=== PATIENT | female | born 1970 | race Caucasian/White ===

== ENCOUNTER 2017-06-07 06:33 | Inpatient (IN) | payer OTHER ==
[2017-06-07 07:00] VITALS: BMI 21.2
--- NOTE | 2017-06-07 07:32 | PDOC ---
History of Present Illness <Tamie Reed - Last Filed: 06/07/17 11:36> - General History Source: Patient - History of Present Illness Timing/Duration: reports: constant Quality: reports: moderate <Chance Sahni - Last Filed: 06/07/17 12:16> - General Chief Complaint: Pain Stated Complaint: POSSIBLE UTI Time Seen by Provider: 06/07/17 07:11 Past History <Tamie Reed - Last Filed: 06/07/17 11:36> - Past Medical History COPD: No - Suicide/Smoking/Psychosocial Hx Smoking History: Never smoked Hx Alcohol Use: No Drug/Substance Use Hx: No <Chance Sahni - Last Filed: 06/07/17 12:16> - Past Medical History Allergies/Adverse Reactions: Allergies Allergy/AdvReac Type Severity Reaction Status Date / Time No Known Allergies Allergy Verified 06/07/17 07:02 Home Medications: Ambulatory Orders Ibuprofen 800 mg PO QID 06/07/17 Review of Systems - Review of Systems Constitutional: No: Chills, Fever ABD/GI: No: Constipated, Diarrhea, Nausea, Vomiting : Yes: Dysuria, Frequency. No: Burning, Discharge, Flank Pain, Hematuria <Chance Sahni - Last Filed: 06/07/17 12:16> *Physical Exam - Vital Signs Last Vital Signs Temp Pulse Resp BP Pulse Ox 100 F H 109 H 20 122/75 99 06/07/17 10:58 06/07/17 10:58 06/07/17 10:58 06/07/17 10:58 06/07/17 10:58 <Tamie Reed - Last Filed: 06/07/17 11:36> - Vital Signs Last Vital Signs Temp Pulse Resp BP Pulse Ox 98.8 F 100 H 118/67 99 06/07/17 06:58 06/07/17 06:58 06/07/17 06:58 06/07/17 06:58 - Physical Exam General Appearance: Yes: Appropriately Dressed. No: Apparent Distress HEENT: positive: Normal Voice Neck: positive: Supple Respiratory/Chest: negative: Respiratory Distress Female Pelvic Exam: positive: normal external exam, normal adnexa. negative: CMT, vaginal bleeding Gastrointestinal/Abdominal: positive: Tender (moderate ttp to mid suprapubic). negative: Distended, Guarding, Rebound Musculoskeletal: negative: CVA Tenderness Integumentary: positive: Dry, Warm Neurologic: positive: Fully Oriented, Alert, Normal Mood/Affect <Chance Sahni - Last Filed: 06/07/17 12:16> ED Treatment Course - LABORATORY CBC & Chemistry Diagram: 06/07/17 08:10 06/07/17 08:10 - ADDITIONAL ORDERS Additional order review: Laboratory Results 06/07/17 06/07/17 06/07/17 08:10 08:10 08:10 Sodium 137 Potassium 4.1 Chloride 104 Carbon Dioxide 26 Anion Gap 7 L BUN 7 D Creatinine 0.5 L Creat Clearance w eGFR > 60 Random Glucose 98 Calcium 9.0 Total Bilirubin 0.3 D AST 18 D ALT 32 D Alkaline Phosphatase 179 H D Total Protein 8.0 Albumin 3.1 L Lipase Cancelled 112 Urine Color Yellow Urine Appearance Slcloudy Urine pH 7.0 Ur Specific [place] 1.015 Urine Protein 2+ H Urine Glucose (UA) Negative Urine Ketones Negative Urine Blood 1+ H Urine Nitrite Negative Urine Bilirubin Negative Urine Urobilinogen Negative Urine WBC (Auto) 3 Urine RBC (Auto) 3 Ur Epithelial Cells Few Urine Mucus Few Urine HCG, Qual Negative 06/07/17 08:10 RBC 3.43 L MCV 84.5 MCHC 32.9 RDW 14.0 MPV 7.6 Neutrophils % 83.1 H Lymphocytes % 11.0 Monocytes % 5.3 Eosinophils % 0.4 Basophils % 0.2 - Medications Given in the ED: ED Medications Discontinued Medications Generic Name Dose Route Start Last Admin Trade Name Valentina PRN Reason Stop Dose Admin Phenazopyridine HCl 200 mg 06/07/17 08:57 06/07/17 09:15 Pyridium - PO 06/07/17 08:58 200 mg ONCE ONE Administration <Tamie Reed - Last Filed: 06/07/17 11:36> - LABORATORY CBC & Chemistry Diagram: 06/07/17 08:10 06/07/17 08:10 <Chance Sahni - Last Filed: 06/07/17 12:16> Medical Decision Making - Medical Decision Making 06/07/17 11:36 Dr. Torres was paged and notified via phone service. <Tamie Reed - Last Filed: 06/07/17 11:36> - Medical Decision Making 06/07/17 07:29 47-year-old female status post surgery for ruptured appy 04/07, here with dysuria with urinary frequency x 3-4 days. States even when she is not urinating, she feels pain in her vaginal area. No flank pain, nausea, vomiting, fever, chills, hematuria or vag discharge. No acute change in bowel movements See exam R/o uti, less likely complication from appy 2 months ago -labs -ua/cx 06/07/17 09:18 Wbx 11. ua w/ +bld,protein and 3 wbc, no nit. Pt now complaining of lower abdominal pain diffusely. Though low clinical suspicion for intra-abdominal process, will scan at this time 06/07/17 11:23 CT with large abscess in the midline lower abdomen measuring 4 x 4 x 6cm, inseparable from the anterior wall of the urinary bladder with some reactive wall thickening of the bladder. White count 11. Patient now has low-grade fever of 100. Tylenol and fluids in progress w/ preop labs sent off. Will contact surgery and discuss ? abx while in ED. 06/07/17 11:[address] Marks, who performed patient's surgery back in March. Recommends keeping patient NPO, administer Zosyn and contacting IR for drainage. Patient to be admitted to PMD. 06/07/17 11:31 06/07/17 11:[address] Tinsley of IR who request that I placed an order for procedure. States patient most likely will be drained in the a.m. 06/07/17 12:16 Case d/w Dr Torres and pt admitted <Chance Sahni - Last Filed: 06/07/17 12:16> *DC/Admit/Observation/Transfer <Tamie Reed - Last Filed: 06/07/17 11:36> - Discharge Dispostion Admit: Yes <Chance Sahni - Last Filed: 06/07/17 12:16> Diagnosis at time of Disposition: Abdominal abscess - Discharge Dispostion Condition at time of disposition: Fair - Referrals Referrals: Page Santos [Primary Care Provider] - - Patient Instructions - Post Discharge Activity
[2017-06-07 08:24] LABS: BASO % 0.2 % (0-2.0); EOS % 0.4 % (0-4.5); MCH 27.8 pg (25.7-33.7); MCHC 32.9 g/dl (32.0-36.0); MEAN CELL VOLUME 84.5 fl (80-96); MEAN PLT VOLUME 7.6 fl (7.5-11.1); NEUT % 83.1 % (42.8-82.8); PLATELET COUNT 356 K/MM3 (134-434); WHITE BLOOD COUNT 11.3 K/mm3 (4.0-10.0)
[2017-06-07 08:32] LABS: URINE APPEARANCE SLCLOUDY; URINE BILIRUBIN NEGATIVE (NEGATIVE); URINE BLOOD 1+ (NEGATIVE); URINE COLOR YELLOW; URINE GLUCOSE (UA) NEGATIVE (NEGATIVE); URINE KETONE NEGATIVE (NEGATIVE); URINE LEUK ESTERASE NEGATIVE (NEGATIVE); URINE NITRITE NEGATIVE (NEGATIVE); URINE UROBILINOGEN NEGATIVE mg/dL (0.2-1.0)
[2017-06-07 08:44] LABS: URINE MUCUS FEW; URINE PROTEIN 2+ (NEGATIVE); URINE RBC 3 /hpf (0-3); URINE WBC 3 /hpf (3-5)
[2017-06-07 08:48] LABS: ALBUMIN 3.1 g/dl (3.4-5.0); ANION GAP 7 (8-16); BILIRUBIN,TOTAL 0.3 mg/dL (0.2-1.0); CO2 26 mmol/L (21-32); CREATININE 0.5 mg/dL (0.55-1.02); GLUCOSE,RANDOM 98 mg/dL (74-106); SGOT/AST 18 U/L (15-37); SGPT/ALT 32 U/L (12-78)
[2017-06-07 08:49] LABS: ALK PHOS 179 U/L (45-117)
[2017-06-07] MEDS ORDERED: PHENAZOPYRIDINE HCL 100 MG TABLET (FP) PO ONE (08:57)
[2017-06-07] MEDS ORDERED: PHENAZOPYRIDINE HCL 100 MG TABLET (FP) ONE (09:15)
[2017-06-07] MEDS ORDERED: ACETAMINOPHEN 325 MG TABLET (FP) PO ONE (11:23)
[2017-06-07] MEDS ORDERED: SODIUM CHLORIDE 1,000 ML IV STA (11:23)
[2017-06-07] MEDS ORDERED: PIPERACILLIN/TAZOB 3.375 GM 50 ML IVPB ONE (11:28)
[2017-06-07] MEDS ORDERED: ACETAMINOPHEN 650 MG/20.3 ML ORAL SOLUTION (CUPS) ONE (11:40)
[2017-06-07] MEDS ORDERED: PIPERACILLIN/TAZOB 3.375 GM 3.375 GM/50 ML BAG IVPB ONE (11:41)
[2017-06-07 12:08] LABS: INR 1.3 (0.82-1.09); PROTHROMBIN TIME (PATIENT) 14.7 SEC (9.98-11.88)
[2017-06-07] MEDS ORDERED: morphine SULFATE 4 MG/ML VIAL IVPUSH PRN (17:15)
[2017-06-07 19:54] LABS: URINE LEUK ESTERASE Negative (NEGATIVE)
--- NOTE | 2017-06-07 21:41 | HP ---
Admitting History and Physical - Admission Chief Complaint: Dysuria History of Present Illness: Pt is a 47 y/o female w/ PMH significant for perforated appendix in 04/07 for wc she had undergone lap appendectomy. Pt now presented to the ER bc of generalized lower abdominal discomfort for at least 1 week. Pt also c/o dysuria and increased urination x 1 week. Pt denies any fever/chills and no nausea/vomiting. In the ER pt found to be febrile to 100 w/ WBC of 11.3. CT scan abd/pelvis showed abscess in midline abdomen inseparable from ant wall of urinary bladder. History Source: Patient - Past Surgical History Past Surgical History: Yes: Appendectomy - Smoking History Smoking history: Never smoked - Alcohol/Substance Use Hx Alcohol Use: No Home Medications - Allergies Allergies/Adverse Reactions: Allergies Allergy/AdvReac Type Severity Reaction Status Date / Time No Known Allergies Allergy Verified 06/07/17 07:02 - Home Medications Home Medications: Ambulatory Orders Ibuprofen 800 mg PO QID 06/07/17 Family Disease History - Family Disease History Family History: Unremarkable Review of Systems - Review of Systems Constitutional: reports: No Symptoms HENT: reports: No Symptoms Neck: reports: No Symptoms Cardiovascular: reports: No Symptoms Respiratory: reports: No Symptoms Gastrointestinal: reports: Abdominal Pain Genitourinary: reports: Dysuria, Frequency Physical Examination Vital Signs: Vital Signs Temperature 97.8 F 06/07/17 14:44 Pulse Rate 112 H 06/07/17 14:44 Respiratory Rate 18 06/07/17 16:25 Blood Pressure 103/60 06/07/17 14:44 O2 Sat by Pulse Oximetry (%) 97 06/07/17 16:25 Constitutional: Yes: No Distress Neck: Yes: WNL, Supple Cardiovascular: Yes: WNL, Regular Rate and Rhythm Respiratory: Yes: WNL, Regular, CTA Bilaterally Gastrointestinal: Yes: WNL, Normal Bowel Sounds, Soft Musculoskeletal: Yes: WNL Extremities: Yes: WNL Edema: No Neurological: Yes: WNL, Alert, Oriented ...Motor Strength: WNL Labs: CBC, BMP 06/07/17 08:10 06/07/17 08:10 Problem List - Problems (1) Abdominal abscess Assessment/Plan: Cont IV zosyn Pt to have drainage by IR in am ID/Surgical consults Follow cultures NPO Code(s): K65.1 - PERITONEAL ABSCESS
[2017-06-08] MEDS: ACETAMINOPHEN 325 MG TABLET (FP) PO PRN ×2 (00:42→18:27)
[2017-06-08] MEDS: DEXTROSE 5%-0.45% SALINE 1,000 ML IV SCH ×2 (00:43→15:20)
[2017-06-08] MEDS ORDERED: PIPERACILLIN/TAZOB 3.375 GM 3.375 GM in DEXTROSE 5%-WATER - 50 ML IVPB ONE (03:30)
[2017-06-08 08:44] LABS: BASO % 0.1 % (0-2.0); EOS % 0.2 % (0-4.5); MCH 27.2 pg (25.7-33.7); MCHC 32.7 g/dl (32.0-36.0); MEAN CELL VOLUME 83.4 fl (80-96); MEAN PLT VOLUME 7.9 fl (7.5-11.1); NEUT % 83.5 % (42.8-82.8); PLATELET COUNT 328 K/MM3 (134-434); RDW 13.9 % (11.6-15.6); WHITE BLOOD COUNT 11.6 K/mm3 (4.0-10.0)
[2017-06-08 09:16] LABS: ALBUMIN 2.6 g/dl (3.4-5.0); ANION GAP 9 (8-16); BILIRUBIN,TOTAL 0.6 mg/dL (0.2-1.0); CALCIUM 8.9 mg/dL (8.5-10.1); CO2 25 mmol/L (21-32); CREATININE 0.5 mg/dL (0.55-1.02); GLUCOSE,RANDOM 120 mg/dL (74-106); SGOT/AST 53 U/L (15-37); SGPT/ALT 71 U/L (12-78)
[2017-06-08 09:17] LABS: ALK PHOS 221 U/L (45-117); TOT PROT 6.8 g/dl (6.4-8.2)
--- NOTE | 2017-06-08 11:44 | PN ---
Progress Note (short form) - Note Progress Note: surgery pt seen and examined yesterday. In ct today for drainage. Well known to me from appendectomy almost 2 months ago. Been off abx for almost a month. Presents with new lower abd pain and increased urinary frequency. Ct shows abscess anterior to bladder. on exam mild suprapubic tenderness. Plan- temporally likely residual collection from previous perforation. agree with admission and IR drainage. Can resume diet once procedure over. Poss d/c WED on po abx once appears well.
[2017-06-08] MEDS: HEPARIN NA (PORCINE) 5,000 UNITS/ML 1ML VIAL SQ SCH ×2 (12:37→21:25)
--- NOTE | 2017-06-08 14:06 | CON.ID ---
Consult Consult Specialty:: infectious diseases Referred by:: Reason for Consultation:: abd abscess - History of Present Illness History of Present Illness: 47 y/o female w/ PMH significant for perforated appendix in 04/07 for wc she had undergone lap appendectomy. Pt now admitted bc of generalized lower abdominal discomfort for at least 1 week. Pt also c/o dysuria and increased urination x 1 week. Pt denies any fever/chills and no nausea/vomiting. In the ER pt found to be febrile to 100 w/ WBC of 11.3. CT scan abd/pelvis showed abscess in midline abdomen inseparable from ant wall of urinary bladder. patient was seen by surgeon and taken to the OR and patients abscess was drained and a drainage tube left in place patient states that she continues to have abd pain which has been going on for quite some time - History Source History Provided By: Patient Limitations to Obtaining History: Language Barrier - Past Surgical History Past Surgical History: Yes: Appendectomy - Alcohol/Substance Use Hx Alcohol Use: No - Smoking History Smoking history: Never smoked Home Medications - Allergies Allergies/Adverse Reactions: Allergies Allergy/AdvReac Type Severity Reaction Status Date / Time No Known Allergies Allergy Verified 06/07/17 07:02 - Home Medications Home Medications: Ambulatory Orders Ibuprofen 800 mg PO QID 06/07/17 Review of Systems - Review of Systems Constitutional: reports: No Symptoms Eyes: reports: No Symptoms HENT: reports: No Symptoms Neck: reports: No Symptoms Cardiovascular: reports: No Symptoms Respiratory: reports: No Symptoms Gastrointestinal: reports: Abdominal Pain, Other Musculoskeletal: reports: No Symptoms Integumentary: reports: No Symptoms Neurological: reports: No Symptoms Endocrine: reports: No Symptoms Hematology/Lymphatic: reports: No Symptoms Psychiatric: reports: No Symptoms Physical Exam Vital Signs: Vital Signs Temperature 100.0 F H 06/08/17 13:50 Pulse Rate 111 H 06/08/17 12:36 Respiratory Rate 20 06/08/17 12:36 Blood Pressure 106/66 06/08/17 13:50 O2 Sat by Pulse Oximetry (%) 100 06/08/17 11:29 Constitutional: Yes: Well Nourished, No Distress, Calm Eyes: Yes: Conjunctiva Clear Neck: Yes: Supple, Trachea Midline Cardiovascular: Yes: Regular Rate and Rhythm Respiratory: Yes: Regular, CTA Bilaterally Gastrointestinal: Yes: Normal Bowel Sounds, Soft, Other (drainage tube in place) Musculoskeletal: Yes: WNL Extremities: Yes: WNL Neurological: Yes: Alert, Oriented Psychiatric: Yes: Alert, Oriented Labs: CBC, BMP 06/08/17 07:30 06/08/17 07:30 Imaging - Results Cat Scan: Report Reviewed, Image Reviewed Assessment/Plan Problem List - Problems (1) Abdominal abscess Assessment/Plan: S/P placement of drainage tube Code(s): K65.1 - PERITONEAL ABSCESS plan lilly start patient on zosyn follow cx and wbc rest as per primary team
[2017-06-08] MEDS: PIPERACILLIN/TAZOB 3.375 GM 3.375 GM in DEXTROSE 5%-WATER - 100 ML IVPB SCH ×2 (15:21→18:27)
--- NOTE | 2017-06-08 21:57 | PN ---
Progress Note, Physician History of Present Illness: Pt tolerated procedure but spiked temp to 101 - Current Medication List Current Medications: Active Medications Acetaminophen (Tylenol -) 650 mg PO Q6H PRN PRN Reason: FEVER OR PAIN Last Admin: 06/08/17 18:27 Dose: 650 mg Heparin Sodium (Porcine) (Heparin -) 5,000 unit SQ BID HITESH Last Admin: 06/08/17 21:25 Dose: 5,000 unit Dextrose/Sodium Chloride (D5-1/2ns -) 1,000 mls @ 75 mls/hr IV ASDIR HITESH Last Admin: 06/08/17 15:20 Dose: 75 mls/hr Piperacillin Sod/Tazobactam (Sod 3.375 gm/ Dextrose) 100 mls @ 200 mls/hr IVPB Q8H-IV HITESH PRN Reason: Protocol Last Admin: 06/08/17 18:27 Dose: 200 mls/hr Morphine Sulfate (Morphine Sulfate) 4 mg IVPUSH Q6H PRN PRN Reason: PAIN Last Admin: 06/07/17 17:20 Dose: 4 mg - Objective Vital Signs: Vital Signs Temperature 101.3 F H 06/08/17 19:00 Pulse Rate 112 H 06/08/17 19:00 Respiratory Rate 20 06/08/17 19:00 Blood Pressure 124/67 06/08/17 19:00 O2 Sat by Pulse Oximetry (%) 100 06/08/17 11:29 Constitutional: Yes: No Distress HENT: Yes: WNL Neck: Yes: WNL, Supple Cardiovascular: Yes: WNL, Regular Rate and Rhythm Respiratory: Yes: WNL, Regular, CTA Bilaterally Gastrointestinal: Yes: WNL, Normal Bowel Sounds, Soft, Other ((+) drainage tube draining) Labs: CBC, BMP 06/08/17 07:30 06/08/17 07:30 INR, PTT INR 1.30 (0.82-1.09) H 06/07/17 11:30 Problem List - Problems (1) Abdominal abscess Assessment/Plan: S/P placement of drainage tube Cont IV zosyn Follow cultures Check wbc in am Code(s): K65.1 - PERITONEAL ABSCESS
[2017-06-09] MEDS: PIPERACILLIN/TAZOB 3.375 GM 3.375 GM in DEXTROSE 5%-WATER - 100 ML IVPB SCH ×3 (02:58→17:47)
[2017-06-09] MEDS: DEXTROSE 5%-0.45% SALINE 1,000 ML IV SCH ×2 (08:13→23:27)
[2017-06-09 08:33] LABS: BASO % 0.1 % (0-2.0); EOS % 2.5 % (0-4.5); MCHC 33.3 g/dl (32.0-36.0); MEAN CELL VOLUME 84.2 fl (80-96); MEAN PLT VOLUME 7.7 fl (7.5-11.1); NEUT % 71.1 % (42.8-82.8); PLATELET COUNT 319 K/MM3 (134-434); RDW 13.7 % (11.6-15.6); WHITE BLOOD COUNT 6.4 K/mm3 (4.0-10.0)
[2017-06-09 09:10] LABS: ALBUMIN 2.4 g/dl (3.4-5.0); ALK PHOS 277 U/L (45-117); ANION GAP 6 (8-16); BILIRUBIN,TOTAL 0.3 mg/dL (0.2-1.0); CALCIUM 8.5 mg/dL (8.5-10.1); CO2 26 mmol/L (21-32); CREATININE 0.5 mg/dL (0.55-1.02); GLUCOSE,RANDOM 102 mg/dL (74-106); SGOT/AST 108 U/L (15-37); SGPT/ALT 152 U/L (12-78); TOT PROT 6.7 g/dl (6.4-8.2)
[2017-06-09] MEDS ORDERED: PT OWN MED DRAWER 7, Y5N ONE (10:31)
[2017-06-09] MEDS: ACETAMINOPHEN 325 MG TABLET (FP) PO PRN ×2 (13:08→23:30)
[2017-06-09] MEDS: HEPARIN NA (PORCINE) 5,000 UNITS/ML 1ML VIAL SQ SCH ×2 (13:11→22:14)
--- NOTE | 2017-06-09 14:20 | PN ---
Progress Note, Physician History of Present Illness: stable no new issues comfortable - Current Medication List Current Medications: Active Medications Acetaminophen (Tylenol -) 650 mg PO Q6H PRN PRN Reason: FEVER OR PAIN Last Admin: 06/09/17 13:08 Dose: 650 mg Heparin Sodium (Porcine) (Heparin -) 5,000 unit SQ BID HITESH Last Admin: 06/09/17 13:11 Dose: Not Given Dextrose/Sodium Chloride (D5-1/2ns -) 1,000 mls @ 75 mls/hr IV ASDIR HITESH Last Admin: 06/09/17 08:13 Dose: 75 mls/hr Piperacillin Sod/Tazobactam (Sod 3.375 gm/ Dextrose) 100 mls @ 200 mls/hr IVPB Q8H-IV HITESH PRN Reason: Protocol Last Admin: 06/09/17 10:53 Dose: 200 mls/hr Morphine Sulfate (Morphine Sulfate) 4 mg IVPUSH Q6H PRN PRN Reason: PAIN Last Admin: 06/07/17 17:20 Dose: 4 mg - Objective Vital Signs: Vital Signs Temperature 98.5 F 06/09/17 09:00 Pulse Rate 88 06/09/17 09:00 Respiratory Rate 18 06/09/17 09:00 Blood Pressure 106/60 06/09/17 09:00 O2 Sat by Pulse Oximetry (%) 98 06/09/17 09:00 Constitutional: Yes: No Distress, Calm Cardiovascular: Yes: Regular Rate and Rhythm Respiratory: Yes: Regular, CTA Bilaterally Gastrointestinal: Yes: Normal Bowel Sounds, Soft, Other (drain in place) Musculoskeletal: Yes: WNL Extremities: Yes: WNL Wound/Incision: Yes: Dressing Dry and Intact Neurological: Yes: Alert, Oriented Labs: CBC, BMP 06/09/17 07:34 06/09/17 07:34 INR, PTT INR 1.30 (0.82-1.09) H 06/07/17 11:30 Assessment/Plan Problem List - Problems (1) Abdominal abscess Assessment/Plan: S/P placement of drainage tube Code(s): K65.1 - PERITONEAL ABSCESS plan continue zosyn await for sensitivities rest as per primary team
--- NOTE | 2017-06-09 14:49 | PN ---
Progress Note (short form) - Note Progress Note: surgery pt seen and examined. s/p IR drainage of collection. 10 ml pus noted. wbc now normal abd-soft, nt Plan- regular diet. suggest cont iv abx. repeat ct Thursday with +/- removal per IR. At that point discharge on Po abx will likely be appropriate.
--- NOTE | 2017-06-09 20:33 | PN ---
Progress Note, Physician - Current Medication List Current Medications: Active Medications Acetaminophen (Tylenol -) 650 mg PO Q6H PRN PRN Reason: FEVER OR PAIN Last Admin: 06/09/17 13:08 Dose: 650 mg Heparin Sodium (Porcine) (Heparin -) 5,000 unit SQ BID HITESH Last Admin: 06/09/17 13:11 Dose: Not Given Dextrose/Sodium Chloride (D5-1/2ns -) 1,000 mls @ 75 mls/hr IV ASDIR HITESH Last Admin: 06/09/17 08:13 Dose: 75 mls/hr Piperacillin Sod/Tazobactam (Sod 3.375 gm/ Dextrose) 100 mls @ 200 mls/hr IVPB Q8H-IV HITESH PRN Reason: Protocol Last Admin: 06/09/17 17:47 Dose: 200 mls/hr Morphine Sulfate (Morphine Sulfate) 4 mg IVPUSH Q6H PRN PRN Reason: PAIN Last Admin: 06/07/17 17:20 Dose: 4 mg - Objective Vital Signs: Vital Signs Temperature 97.9 F 06/09/17 19:00 Pulse Rate 89 06/09/17 19:00 Respiratory Rate 18 06/09/17 19:00 Blood Pressure 131/84 06/09/17 19:00 O2 Sat by Pulse Oximetry (%) 98 06/09/17 09:00 Labs: CBC, BMP 06/09/17 07:34 06/09/17 07:34 INR, PTT INR 1.30 (0.82-1.09) H 06/07/17 11:30 Problem List - Problems (1) Abdominal abscess Code(s): K65.1 - PERITONEAL ABSCESS
[2017-06-10] MEDS ORDERED: PT OWN MED DRAWER 7, Y5N ONE ×2 (01:19→10:50)
[2017-06-10] MEDS: PIPERACILLIN/TAZOB 3.375 GM 3.375 GM in DEXTROSE 5%-WATER - 100 ML IVPB SCH ×3 (01:57→17:29)
[2017-06-10] MEDS: DEXTROSE 5%-0.45% SALINE 1,000 ML IV SCH ×2 (06:29→14:05)
[2017-06-10] MEDS: HEPARIN NA (PORCINE) 5,000 UNITS/ML 1ML VIAL SQ SCH ×2 (10:54→22:14)
[2017-06-10 14:08] LABS: BASO % 0.4 % (0-2.0); EOS % 4.4 % (0-4.5); MCH 27.4 pg (25.7-33.7); MCHC 32.3 g/dl (32.0-36.0); MEAN CELL VOLUME 84.8 fl (80-96); MEAN PLT VOLUME 7.9 fl (7.5-11.1); NEUT % 59.4 % (42.8-82.8); PLATELET COUNT 406 K/MM3 (134-434); RDW 14.1 % (11.6-15.6); WHITE BLOOD COUNT 4.2 K/mm3 (4.0-10.0)
[2017-06-10] MEDS: ACETAMINOPHEN 325 MG TABLET (FP) PO PRN (14:26)
[2017-06-10 14:47] LABS: ALBUMIN 2.9 g/dl (3.4-5.0); ANION GAP 5 (8-16); CALCIUM 8.7 mg/dL (8.5-10.1); CO2 28 mmol/L (21-32); CREATININE 0.5 mg/dL (0.55-1.02); GLUCOSE,RANDOM 95 mg/dL (74-106); SGOT/AST 64 U/L (15-37); SGPT/ALT 159 U/L (12-78)
[2017-06-10 14:49] LABS: ALK PHOS 318 U/L (45-117); BILIRUBIN,TOTAL 0.4 mg/dL (0.2-1.0); TOT PROT 7.8 g/dl (6.4-8.2)
--- NOTE | 2017-06-10 15:53 | PN ---
Progress Note, Physician History of Present Illness: stable no new issues comfortable pain improving drainage better - Current Medication List Current Medications: Active Medications Acetaminophen (Tylenol -) 650 mg PO Q6H PRN PRN Reason: FEVER OR PAIN Last Admin: 06/10/17 14:26 Dose: 650 mg Heparin Sodium (Porcine) (Heparin -) 5,000 unit SQ BID HITESH Last Admin: 06/10/17 10:54 Dose: Not Given Dextrose/Sodium Chloride (D5-1/2ns -) 1,000 mls @ 75 mls/hr IV ASDIR HITESH Last Admin: 06/10/17 14:05 Dose: 75 mls/hr Piperacillin Sod/Tazobactam (Sod 3.375 gm/ Dextrose) 100 mls @ 200 mls/hr IVPB Q8H-IV HITESH PRN Reason: Protocol Last Admin: 06/10/17 10:52 Dose: 200 mls/hr Morphine Sulfate (Morphine Sulfate) 4 mg IVPUSH Q6H PRN PRN Reason: PAIN Last Admin: 06/07/17 17:20 Dose: 4 mg - Objective Vital Signs: Vital Signs Temperature 98.2 F 06/10/17 14:28 Pulse Rate 97 H 06/10/17 14:28 Respiratory Rate 20 06/10/17 14:28 Blood Pressure 116/66 06/10/17 14:28 O2 Sat by Pulse Oximetry (%) 98 06/10/17 09:00 Constitutional: Yes: Calm, Mild Distress Cardiovascular: Yes: Regular Rate and Rhythm Respiratory: Yes: Regular, CTA Bilaterally Gastrointestinal: Yes: Normal Bowel Sounds, Soft, Other (drainage tube in place) Musculoskeletal: Yes: WNL Extremities: Yes: WNL Neurological: Yes: Alert, Oriented Psychiatric: Yes: Alert, Oriented Labs: CBC, BMP 06/10/17 13:54 06/10/17 13:54 INR, PTT INR 1.30 (0.82-1.09) H 06/07/17 11:30 Assessment/Plan Problem List - Problems (1) Abdominal abscess Assessment/Plan: S/P placement of drainage tube Code(s): K65.1 - PERITONEAL ABSCESS plan continue zosyn cx and sensitivities note
--- NOTE | 2017-06-10 23:33 | PN ---
Progress Note, Physician History of Present Illness: Pt remains afebrile - Current Medication List Current Medications: Active Medications Acetaminophen (Tylenol -) 650 mg PO Q6H PRN PRN Reason: FEVER OR PAIN Last Admin: 06/10/17 14:26 Dose: 650 mg Heparin Sodium (Porcine) (Heparin -) 5,000 unit SQ BID HITESH Last Admin: 06/10/17 22:14 Dose: 5,000 unit Dextrose/Sodium Chloride (D5-1/2ns -) 1,000 mls @ 75 mls/hr IV ASDIR HITESH Last Admin: 06/10/17 14:05 Dose: 75 mls/hr Piperacillin Sod/Tazobactam (Sod 3.375 gm/ Dextrose) 100 mls @ 200 mls/hr IVPB Q8H-IV HITESH PRN Reason: Protocol Last Admin: 06/10/17 17:29 Dose: 200 mls/hr - Objective Vital Signs: Vital Signs Temperature 98.2 F 06/10/17 18:12 Pulse Rate 75 06/10/17 18:12 Respiratory Rate 20 06/10/17 18:12 Blood Pressure 116/79 06/10/17 18:12 O2 Sat by Pulse Oximetry (%) 98 06/10/17 09:00 HENT: Yes: WNL Neck: Yes: WNL, Supple Cardiovascular: Yes: WNL, Regular Rate and Rhythm Respiratory: Yes: WNL, Regular, CTA Bilaterally Gastrointestinal: Yes: Other ((+) drainage tube in LLQ w/ serous drainage) Labs: CBC, BMP 06/10/17 13:54 06/10/17 13:54 INR, PTT INR 1.30 (0.82-1.09) H 06/07/17 11:30 Problem List - Problems (1) Abdominal abscess Assessment/Plan: S/P placement of drainage tube Cont IV zosyn Follow cultures WBC is normal Code(s): K65.1 - PERITONEAL ABSCESS (2) Elevated LFTs Assessment/Plan: Check abdominal US Repeat LFT's in am GI consult Code(s): R79.89 - OTHER SPECIFIED ABNORMAL FINDINGS OF BLOOD CHEMISTRY
[2017-06-11] MEDS: PIPERACILLIN/TAZOB 3.375 GM 3.375 GM in DEXTROSE 5%-WATER - 100 ML IVPB SCH ×3 (01:48→18:48)
[2017-06-11] MEDS: DEXTROSE 5%-0.45% SALINE 1,000 ML IV SCH ×2 (01:48→21:26)
[2017-06-11 07:11] LABS: BASO % 0.4 % (0-2.0); MCH 27.5 pg (25.7-33.7); MCHC 32.6 g/dl (32.0-36.0); MEAN CELL VOLUME 84.4 fl (80-96); MEAN PLT VOLUME 8.1 fl (7.5-11.1); NEUT % 50.5 % (42.8-82.8); PLATELET COUNT 369 K/MM3 (134-434); RDW 13.9 % (11.6-15.6); WHITE BLOOD COUNT 4.5 K/mm3 (4.0-10.0)
[2017-06-11 07:49] LABS: ALBUMIN 2.5 g/dl (3.4-5.0); ALK PHOS 262 U/L (45-117); ANION GAP 8 (8-16); BILIRUBIN,TOTAL 0.3 mg/dL (0.2-1.0); CALCIUM 8.6 mg/dL (8.5-10.1); CO2 26 mmol/L (21-32); CREATININE 0.5 mg/dL (0.55-1.02); GLUCOSE,RANDOM 100 mg/dL (74-106); SGOT/AST 37 U/L (15-37); SGPT/ALT 114 U/L (12-78); TOT PROT 6.6 g/dl (6.4-8.2)
[2017-06-11] MEDS ORDERED: LIDOCAINE HCL 1%, 10 MG/ML (20ML VIAL) ONE (09:36)
[2017-06-11] MEDS: HEPARIN NA (PORCINE) 5,000 UNITS/ML 1ML VIAL SQ SCH ×2 (11:27→21:22)
[2017-06-11] MEDS: PIPERACILLIN/TAZOB 3.375 GM 50 ML IVPB SCH (11:44)
--- NOTE | 2017-06-11 11:53 | PN ---
Progress Note, Physician History of Present Illness: stable no new issues comfortable pain better - Current Medication List Current Medications: Active Medications Acetaminophen (Tylenol -) 650 mg PO Q6H PRN PRN Reason: FEVER OR PAIN Last Admin: 06/10/17 14:26 Dose: 650 mg Heparin Sodium (Porcine) (Heparin -) 5,000 unit SQ BID HITESH Last Admin: 06/11/17 11:27 Dose: 5,000 unit Dextrose/Sodium Chloride (D5-1/2ns -) 1,000 mls @ 75 mls/hr IV ASDIR HITESH Last Admin: 06/11/17 01:48 Dose: Not Given Piperacillin Sod/Tazobactam (Sod 3.375 gm/ Dextrose) 100 mls @ 200 mls/hr IVPB Q8H-IV HITESH PRN Reason: Protocol Last Admin: 06/11/17 09:33 Dose: 200 mls/hr - Objective Vital Signs: Vital Signs Temperature 98.1 F 06/11/17 06:00 Pulse Rate 87 06/11/17 06:00 Respiratory Rate 20 06/11/17 06:00 Blood Pressure 107/66 06/11/17 06:00 O2 Sat by Pulse Oximetry (%) 98 06/10/17 22:00 Constitutional: Yes: No Distress, Calm Cardiovascular: Yes: Regular Rate and Rhythm Respiratory: Yes: Regular, CTA Bilaterally Gastrointestinal: Yes: Normal Bowel Sounds, Soft, Other (draiange tube in place draiange decreasing) Musculoskeletal: Yes: WNL Extremities: Yes: WNL Wound/Incision: Yes: Clean/Dry Neurological: Yes: WNL Labs: CBC, BMP 06/11/17 06:20 06/11/17 06:20 INR, PTT INR 1.30 (0.82-1.09) H 06/07/17 11:30 Assessment/Plan Problem List - Problems (1) Abdominal abscess Assessment/Plan: S/P placement of drainage tube Code(s): K65.1 - PERITONEAL ABSCESS plan continue zosyn cx and sensitivities note will probably change abx to oral rest as per primary
--- NOTE | 2017-06-11 23:01 | PN ---
Progress Note, Physician History of Present Illness: No new changes - Current Medication List Current Medications: Active Medications Acetaminophen (Tylenol -) 650 mg PO Q6H PRN PRN Reason: FEVER OR PAIN Last Admin: 06/10/17 14:26 Dose: 650 mg Heparin Sodium (Porcine) (Heparin -) 5,000 unit SQ BID HITESH Last Admin: 06/11/17 21:22 Dose: 5,000 unit Dextrose/Sodium Chloride (D5-1/2ns -) 1,000 mls @ 75 mls/hr IV ASDIR HITESH Last Admin: 06/11/17 21:26 Dose: 75 mls/hr Piperacillin Sod/Tazobactam (Sod 3.375 gm/ Dextrose) 100 mls @ 200 mls/hr IVPB Q8H-IV HITESH PRN Reason: Protocol Last Admin: 06/11/17 18:48 Dose: 200 mls/hr - Objective Vital Signs: Vital Signs Temperature 98.1 F 06/11/17 14:14 Pulse Rate 90 06/11/17 14:14 Respiratory Rate 20 06/11/17 14:14 Blood Pressure 144/74 06/11/17 14:14 O2 Sat by Pulse Oximetry (%) 98 06/11/17 09:00 Constitutional: Yes: No Distress HENT: Yes: WNL Neck: Yes: WNL, Supple Cardiovascular: Yes: WNL, Regular Rate and Rhythm Respiratory: Yes: WNL, Regular, CTA Bilaterally Gastrointestinal: Yes: WNL, Normal Bowel Sounds, Soft, Other ((+) drainage tube LLQ w/ serous drainage) Labs: CBC, BMP 06/11/17 06:20 06/11/17 06:20 INR, PTT INR 1.30 (0.82-1.09) H 06/07/17 11:30 Problem List - Problems (1) Abdominal abscess Assessment/Plan: S/P placement of drainage tube Check ct scan abd/pelvis Cont IV zosyn Follow cultures WBC is normal Code(s): K65.1 - PERITONEAL ABSCESS (2) Elevated LFTs Assessment/Plan: Check abdominal US Slight decrease in LFT's GI consult Code(s): R79.89 - OTHER SPECIFIED ABNORMAL FINDINGS OF BLOOD CHEMISTRY
[2017-06-12] MEDS: PIPERACILLIN/TAZOB 3.375 GM 3.375 GM in DEXTROSE 5%-WATER - 100 ML IVPB SCH ×2 (02:40→09:41)
[2017-06-12] MEDS: DEXTROSE 5%-0.45% SALINE 1,000 ML IV SCH (02:40)
[2017-06-12 08:46] LABS: BASO % 0.6 % (0-2.0); EOS # 0.2 # (0-4.5); EOS % 3.9 % (0-4.5); LYMPH # 2.3 (8-40); MCH 27.4 pg (25.7-33.7); MCHC 32.2 g/dl (32.0-36.0); MEAN CELL VOLUME 85.1 fl (80-96); MONO # 0.3 # (3.8-10.2); NEUT # 2.6 # (42.8-82.8); NEUT % 48.1 % (42.8-82.8); PLATELET COUNT 464 K/MM3 (134-434); RDW 14.2 % (11.6-15.6); WHITE BLOOD COUNT 5.5 K/mm3 (4.0-10.0)
[2017-06-12 09:15] LABS: ALBUMIN 3.2 g/dl (3.4-5.0); ALK PHOS 275 U/L (45-117); ANION GAP 10 (8-16); BILIRUBIN,TOTAL 0.1 mg/dL (0.2-1.0); CALCIUM 9.9 mg/dL (8.5-10.1); CO2 27 mmol/L (21-32); CREATININE 0.6 mg/dL (0.55-1.02); GLUCOSE,RANDOM 90 mg/dL (74-106); SGOT/AST 29 U/L (15-37); SGPT/ALT 105 U/L (12-78); TOT PROT 8.2 g/dl (6.4-8.2)
[2017-06-12] MEDS: HEPARIN NA (PORCINE) 5,000 UNITS/ML 1ML VIAL SQ SCH (09:41)
--- NOTE | 2017-06-12 10:29 | CON.GI ---
Consult Consult Specialty:: Gastroenterology Referred by:: Dr Torres - History of Present Illness History of Present Illness: 47 y/o female was asked t be evaluated for elevated LFTS. The patient underwentappendectomy March 2017. She was complaining of persistent abdominal pain. On catscan was noted to have an abdominal abscess. She had percutaneous drainage by IR. Since then the abdominal pain improved. LFTS was noted to have elevated since admission. After the the drainage LFTS had a downward tend. - Past Surgical History Past Surgical History: Yes: Appendectomy - Alcohol/Substance Use Hx Alcohol Use: No - Smoking History Smoking history: Never smoked Home Medications - Allergies Allergies/Adverse Reactions: Allergies Allergy/AdvReac Type Severity Reaction Status Date / Time No Known Allergies Allergy Verified 06/07/17 07:02 - Home Medications Home Medications: Ambulatory Orders Ibuprofen 800 mg PO QID 06/07/17 Physical Exam-GI Vital Signs: Vital Signs Temperature 98.3 F 06/12/17 06:00 Pulse Rate 95 H 06/12/17 06:00 Respiratory Rate 18 06/12/17 06:00 Blood Pressure 112/68 06/12/17 06:00 O2 Sat by Pulse Oximetry (%) 98 06/11/17 22:00 Constitutional: Yes: Well Nourished Eyes: Yes: Conjunctiva Clear HENT: Yes: Atraumatic Neck: Yes: Supple Cardiovascular: Yes: Regular Rate and Rhythm Respiratory: Yes: CTA Bilaterally ...Palpate: Yes: Soft. No: Firm/Rigid, Guarding, Hepatomegaly, Mass, Pulsatile Mass, Splenomegaly, Tenderness Labs: CBC, BMP 06/12/17 08:32 06/12/17 08:32 INR, PTT INR 1.30 (0.82-1.09) H 06/07/17 11:30 Hepatic Panel Total Bilirubin 0.1 mg/dL (0.2-1.0) L D 06/12/17 08:32 AST 29 U/L (15-37) D 06/12/17 08:32 ALT 105 U/L (12-78) H 06/12/17 08:32 Alkaline Phosphatase 275 U/L (45-117) H 06/12/17 08:32 Albumin 3.2 g/dl (3.4-5.0) L D 06/12/17 08:32 Problem List - Problems (1) Elevated LFTs Assessment/Plan: most likely secondary to sepsis R> expect continued improvement made aware to follow up as an out patient for further work-up please recall as necessary Code(s): R79.89 - OTHER SPECIFIED ABNORMAL FINDINGS OF BLOOD CHEMISTRY
--- NOTE | 2017-06-12 12:16 | PN ---
Progress Note, Physician History of Present Illness: stable no new issues pain better - Current Medication List Current Medications: Active Medications Acetaminophen (Tylenol -) 650 mg PO Q6H PRN PRN Reason: FEVER OR PAIN Last Admin: 06/10/17 14:26 Dose: 650 mg Heparin Sodium (Porcine) (Heparin -) 5,000 unit SQ BID [facility] Last Admin: 06/12/17 09:41 Dose: 5,000 unit Dextrose/Sodium Chloride (D5-1/2ns -) 1,000 mls @ 75 mls/hr IV ASDIR [facility] Last Admin: 06/12/17 02:40 Dose: Not Given - Objective Vital Signs: Vital Signs Temperature 98.3 F 06/12/17 06:00 Pulse Rate 95 H 06/12/17 06:00 Respiratory Rate 18 06/12/17 06:00 Blood Pressure 112/68 06/12/17 06:00 O2 Sat by Pulse Oximetry (%) 98 06/11/17 22:00 Constitutional: Yes: No Distress, Calm Cardiovascular: Yes: Regular Rate and Rhythm Respiratory: Yes: Regular, CTA Bilaterally Gastrointestinal: Yes: Normal Bowel Sounds, Soft, Other Musculoskeletal: Yes: WNL Extremities: Yes: WNL Labs: CBC, BMP 06/12/17 08:32 06/12/17 08:32 INR, PTT INR 1.30 (0.82-1.09) H 06/07/17 11:30 Assessment/Plan Problem List - Problems (1) Abdominal abscess Assessment/Plan: S/P placement of drainage tube Code(s): K65.1 - PERITONEAL ABSCESS plan will change abx to clinda rest as per surgery
[2017-06-12] MEDS ORDERED: CLINDAMYCIN HCL 150 MG CAPSULE (FP) PO SCH (18:00)
[2017-06-12 19:02] VITALS: BP 109/72; PULSE 93; TEMP 99
[2017-06-19 00:06] LABS: HBeAG Negative (Negative); HEP BE AB Negative (Negative)
== END 2017-06-12 20:26 | disposition home or self-care (01) | DRG 248 ==
LOC: JER 06:33 → JERBED 12:16 → J5S 13:45
PROVIDERS: ADMIT Internal Medicine; ATTEND Internal Medicine
PROC: 0W9G30Z Drainage of Peritoneal Cavity with Drainage Device, Percutaneous Approach (ICD-10-PCS; principal; 2017-06-08)
PROC: 0WPGX0Z Removal of Drainage Device from Peritoneal Cavity, External Approach (ICD-10-PCS; 2017-06-12)
DX: K65.1 Peritoneal abscess (principal); R50.9 Fever, unspecified; R79.89 Other specified abnormal findings of blood chemistry
CPT/HCPCS: 36415; 49406; 49424; 74177-TC; 74178-TC; 76080-TC; 76705-TC; 80053; 81003; 81015; 82272; 83690; 84703; 85025; 85610; 86704; 86705; 86707; 86803; 86850; 86900; 86901; 87040; 87070; 87075; 87086; 87186; 87205; 87340; 87350; 99282-25; J1644; Q9967

== ENCOUNTER 2017-09-22 10:03 | Emergency (ER) | payer OTHER ==
[2017-09-22 10:11] VITALS: TEMP 98; BMI 21.2
[2017-09-22 11:11] LABS: URINE APPEARANCE CLEAR; URINE BILIRUBIN NEGATIVE (<2.0 mg/dL); URINE BLOOD NEGATIVE (NEGATIVE); URINE COLOR LTYELLOW; URINE GLUCOSE (UA) NEGATIVE (NEGATIVE); URINE KETONE NEGATIVE (NEGATIVE); URINE LEUK ESTERASE NEGATIVE (NEGATIVE); URINE NITRITE NEGATIVE (NEGATIVE); URINE PROTEIN NEGATIVE (NEGATIVE); URINE UROBILINOGEN NEGATIVE mg/dL (0.2-1.0)
[2017-09-22] MEDS ORDERED: SODIUM CHLORIDE 1,000 ML IV ONE (11:25)
[2017-09-22 11:40] LABS: BASO % 0.5 % (0-2.0); EOS % 0.9 % (0-4.5); HEMATOCRIT 32.5 % (32.4-45.2); HEMOGLOBIN 10.6 GM/dL (10.7-15.3); LYMPH % 42.3 % (8-40); MCH 27.7 pg (25.7-33.7); MCHC 32.8 g/dl (32.0-36.0); MEAN CELL VOLUME 84.6 fl (80-96); MEAN PLT VOLUME 8.1 fl (7.5-11.1); MONO % 4.7 % (3.8-10.2); NEUT % 51.6 % (42.8-82.8); PLATELET COUNT 242 K/MM3 (134-434); RBC 3.84 M/mm3 (3.60-5.2); RDW 16.2 % (11.6-15.6); WHITE BLOOD COUNT 4.3 K/mm3 (4.0-10.0)
[2017-09-22 11:52] LABS: INR 1.04 (0.82-1.09); PROTHROMBIN TIME (PATIENT) 11.7 SEC (9.98-11.88)
--- NOTE | 2017-09-22 11:53 | PDOC ---
History of Present Illness - General History Source: Patient Exam Limitations: No Limitations - History of Present Illness Initial Comments: 09/22/17 11:53 The patient is a 47 year old female with significant PMH of post-surgery for ruptured appendix on 04/07 (done by Dr. Griggs) complicated by anterior abdominal wall abscess s/p drainage who presents to the emergency department with worsening suprapubic discomfort over the past ~20 days with associated frequency and urgency. The patient describes the abdominal discomfort as a constant pulling sensation to the suprapubic region and states she 'feels gasy but has noticed no improvement with Gas X.' The patient notes the abdominal discomfort kept her up last night prompting her to come to the ER. The patient reports she has an abdominal and pelvic US at the onset of these symptoms ( ordered by Dr. Torres) that were unremarkable. Dr. Torres (PCP) also recommended the patient get a CT scan if symptoms persist but the patient came in today because she could no longer tolerate these symptoms. 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 Last BM was this morning. Endorses occasional chills and nausea but denies flank pain, fever, vomit, diarrhea and constipation. Denies vaginal discharge, hematuria, or changes in bowel movements. The patient denies any other abdominal surgeries. Allergies: NKA Past surgical history: Laparoscopic surgery for ruptured appy (Dr. Griggs) Social history: No reported alcohol, drug or cigarette use. PCP: Dr. Torres <Laurie Chambers - Last Filed: 09/22/17 11:54> <Rubén Nava - Last Filed: 09/22/17 16:47> - General Chief Complaint: Pain, Acute Stated Complaint: ABD PAIN Time Seen by Provider: 09/22/17 10:20 Past History <Laurie Chambers - Last Filed: 09/22/17 11:54> - Past Medical History COPD: No Other medical history: DENIES. - Surgical History Appendectomy: Yes - Reproductive History Is Patient Now?: No Cervical CA: No Dysfunctional Uterine Bleeding: No Ectopic : No Endometrial CA: No Polycystic Ovaries: No Tubal Ligation: No - Suicide/Smoking/Psychosocial Hx Smoking History: Never smoked Hx Alcohol Use: No Drug/Substance Use Hx: No <Rubén Nava - Last Filed: 09/22/17 16:47> - Past Medical History Allergies/Adverse Reactions: Allergies Allergy/AdvReac Type Severity Reaction Status Date / Time No Known Allergies Allergy Verified 09/22/17 10:07 Home Medications: Ambulatory Orders NK [No Known Home Medication] 09/22/17 Review of Systems - Review of Systems Constitutional: Yes: Chills. No: Fever Respiratory: No: Cough, Shortness of Breath Cardiac (ROS): No: Chest Pain ABD/GI: Yes: See HPI, Nausea. No: Diarrhea, Vomiting : Yes: Frequency, Urgency. No: Dysuria Neurological: No: Headache All Other Systems: Reviewed and Negative <Rubén Nava - Last Filed: 09/22/17 16:47> *Physical Exam - Vital Signs Last Vital Signs Temp Pulse Resp BP Pulse Ox 98 F 79 18 120/66 99 09/22/17 10:08 09/22/17 10:08 09/22/17 10:08 09/22/17 10:08 09/22/17 10:08 - Physical Exam Comments: 09/22/17 11:57 GENERAL: The patient is awake, alert, and fully oriented, in no acute distress. HEAD: Normal with no signs of trauma. EYES: Pupils equal, round and reactive to light, extraocular movements intact, sclera anicteric, conjunctiva clear with no pallor. ENT: Ears normal, nares patent, oropharynx clear without exudates. Moist mucous membranes. NECK: Normal range of motion, supple without lymphadenopathy, JVD, or masses. LUNGS: Breath sounds equal, clear to auscultation bilaterally. No wheeze/ crackles. HEART: Regular rate and rhythm, normal S1 and S2 without murmur or rub. ABDOMEN: (+) RLQ and suprapubic discomfort. Soft/nondistended. BS wnl. No guarding or rebound. No palpable masses. No hepatosplenomegaly. EXTREMITIES: Normal range of motion, no edema. No clubbing or cyanosis. No cords, erythema, or tenderness. NEUROLOGICAL: Cranial nerves II through XII grossly intact. Normal speech, normal gait. PSYCH: Normal mood, normal affect. SKIN: Warm, Dry, normal turgor, no rashes or lesions noted. <Laurie Chambers - Last Filed: 09/22/17 11:54> - Vital Signs Last Vital Signs Temp Pulse Resp BP Pulse Ox 98 F 79 18 120/66 99 09/22/17 10:08 09/22/17 10:08 09/22/17 10:08 09/22/17 10:08 09/22/17 10:08 <Rubén Nava - Last Filed: 09/22/17 16:47> ED Treatment Course - LABORATORY CBC & Chemistry Diagram: 09/22/17 11:34 09/22/17 11:34 - ADDITIONAL ORDERS Additional order review: Laboratory Results 09/22/17 09/22/17 11:04 10:50 Urine Color Ltyellow Urine Appearance Clear Urine pH 7.0 Ur Specific Maryneal 1.015 Urine Protein Negative Urine Glucose (UA) Negative Urine Ketones Negative Urine Blood Negative Urine Nitrite Negative Urine Bilirubin Negative Urine Urobilinogen Negative Ur Leukocyte Esterase Negative Urine HCG, Qual Negative 09/22/17 11:34 RBC 3.84 MCV 84.6 MCHC 32.8 RDW 16.2 H D MPV 8.1 Neutrophils % 51.6 Lymphocytes % 42.3 H Monocytes % 4.7 Eosinophils % 0.9 Basophils % 0.5 <Laurie Chambers - Last Filed: 09/22/17 11:54> - LABORATORY CBC & Chemistry Diagram: 09/22/17 11:34 09/22/17 11:34 - ADDITIONAL ORDERS Additional order review: Laboratory Results 09/22/17 09/22/17 11:04 10:50 Urine Color Ltyellow Urine Appearance Clear Urine pH 7.0 Ur Specific Maryneal 1.015 Urine Protein Negative Urine Glucose (UA) Negative Urine Ketones Negative Urine Blood Negative Urine Nitrite Negative Urine Bilirubin Negative Urine Urobilinogen Negative Ur Leukocyte Esterase Negative Urine HCG, Qual Negative 09/22/17 11:34 RBC 3.84 MCV 84.6 MCHC 32.8 RDW 16.2 H D MPV 8.1 Neutrophils % 51.6 Lymphocytes % 42.3 H Monocytes % 4.7 Eosinophils % 0.9 Basophils % 0.5 - RADIOLOGY Radiology Studies Ordered: Category Date Time Status ABDOMEN & PELVIS CT WITH CONTR [CT] Stat CT Scan 09/22/17 11:29 Ordered <Rubén Nava - Last Filed: 09/22/17 16:47> Medical Decision Making - Medical Decision Making 09/22/17 11:50 A portion of this note was documented by scribe services under my direction. I have reviewed the details of the note, within reason, and agree with the documentation with the following case summary and management plan written by me. 47-year-old female with history of ruptured appendicitis in March complicated by abscess in the anterior abdominal wall with adhesions to the bladder status post drainage now presents with 20 days of worsening suprapubic discomfort associated with urinary urgency and frequency. An ultrasound was performed at the onset of her symptoms, ordered by Dr. Torres, her PCP, which was unremarkable. Plan was to pursue outpatient CAT scan if symptoms persisted, patient presents today due to inability to tolerate her symptoms and difficulty sleeping. Afebrile. Generally well-appearing. Abdomen is soft and nondistended. Suprapubic discomfort to palpation extending to the right lower quadrants, no guarding or rebound, no palpable masses 47-year-old female with persistence suprapubic/abdominal pain following ruptured appendicitis with abscess status post drainage. Question recurrence of collection, question postop/postinfectious adhesions. Rule out UTI. Labs, urinalysis CT of the abdomen and pelvis IV fluids Declines pain medication at this time Reassess, discuss disposition with Dr. Torres 09/22/17 13:48 No leukocytosis, chemistries are within normal limits, urinalysis is clear. Awaiting CAT scan. 09/22/17 16:[address] Torres, agrees with plan for d/c and f/u with surgery, still seeing Dr. Marks. Pt agrees, understands return criteria. Will attempt colace as stool softener, declines pain meds. <Rubén Nava - Last Filed: 09/22/17 16:47> *DC/Admit/Observation/Transfer - Attestations Scribe Attestion: 09/22/17 11:59 Documentation prepared by Laurie Chambers, acting as director medical safety for Rubén Nava MD. <Laurie Chambers - Last Filed: 09/22/17 11:54> <Rubén Nava - Last Filed: 09/22/17 16:47> Diagnosis at time of Disposition: Lower abdominal pain - Discharge Dispostion Disposition: HOME Condition at time of disposition: Stable - Referrals Referrals: Page Santos [Primary Care Provider] - Luiza Torres MD [Staff Physician] - Viral Marks MD [Staff Physician] - - Patient Instructions Printed Discharge Instructions: DI for Abdominal Pain-Adult Additional Instructions: Activity as tolerated. Stay hydrated. Tylenol 1000 mg every 8 hours and/or ibuprofen 600 mg every 8 hours as needed for pain. Blood tests and a urine test today showed no acute abnormalities. A CAT scan shows no evidence of infection or collection, but there may be some scar tissue attached to the front of the bladder which may be causing your symptoms. Take Colace twice daily [id number] as a stool softener. Continue your medications as previously prescribed by your physician. You should follow up with Dr. Torres and Dr. Marks as soon as possible regarding today's emergency department visit. Further imaging with an MRI may be needed to further identify this scar tissue. Return to the emergency department for any new or concerning symptoms, particularly worsening pain, inability to have a bowel movement or vomiting, fever/chills, difficulty urinating. - Post Discharge Activity
[2017-09-22 12:18] LABS: ALBUMIN 3.6 g/dl (3.4-5.0); ALK PHOS 74 U/L (45-117); ANION GAP 5 (8-16); BILIRUBIN,TOTAL 0.1 mg/dL (0.2-1.0); BLOOD UREA NITROGEN 11 mg/dL (7-18); CALCIUM 8.8 mg/dL (8.5-10.1); CHLORIDE 111 mmol/L (98-107); CO2 26 mmol/L (21-32); CREATININE 0.5 mg/dL (0.55-1.02); GLUCOSE,RANDOM 86 mg/dL (74-106); LIPASE 174 U/L (73-393); POTASSIUM 4.1 mmol/L (3.5-5.1); SGOT/AST 17 U/L (15-37); SGPT/ALT 23 U/L (12-78); SODIUM 142 mmol/L (136-145); TOT PROT 7.4 g/dl (6.4-8.2)
[2017-09-22 16:55] VITALS: BP 121/61; PULSE 74
== END 2017-09-22 16:55 | disposition home or self-care (01) ==
LOC: JER 10:03
PROC: 3E0337Z Introduction of Electrolytic and Water Balance Substance into Peripheral Vein, Percutaneous Approach (ICD-10-PCS; principal; 2017-09-22)
DX: R10.30 Lower abdominal pain, unspecified (principal)
CPT/HCPCS: 36415; 74177-TC; 80053; 81003; 83690; 84703; 85025; 85610; 96360; 99283-25; J7030

== ENCOUNTER 2018-04-01 10:43 | Emergency (ER) | payer OTHER ==
[2018-04-01 10:53] VITALS: BP 127/63; PULSE 90; TEMP 98.8; BMI 23.4
--- NOTE | 2018-04-01 12:11 | PDOC ---
History of Present Illness - General Chief Complaint: Vaginal Sxs Stated Complaint: VAGINAL PAIN Time Seen by Provider: 04/01/18 11:14 History Source: Patient Exam Limitations: No Limitations - History of Present Illness Travel History: No Initial Comments: 04/01/18 12:15 48 yr female no pmhx with abscess to the right vulva for 3 days no fever . Past History - Past Medical History Allergies/Adverse Reactions: Allergies Allergy/AdvReac Type Severity Reaction Status Date / Time No Known Allergies Allergy Verified 04/01/18 10:49 Home Medications: Ambulatory Orders Amoxicillin/Potassium Clav [Augmentin 875-125 Tablet] 1 each PO BID #10 tablet 04/01/18 Ibuprofen 800 mg PO TID PRN #20 tablet 04/01/18 COPD: No - Surgical History Appendectomy: Yes - Reproductive History Cervical CA: No Dysfunctional Uterine Bleeding: No Ectopic : No Endometrial CA: No Polycystic Ovaries: No Tubal Ligation: No - Immunization History Immunization Up to Date: Yes - Suicide/Smoking/Psychosocial Hx Smoking History: Never smoked Hx Alcohol Use: No Drug/Substance Use Hx: No Review of Systems - Review of Systems Able to Perform ROS?: Yes Is the patient limited Maori proficient: Yes Constitutional: No: Symptoms Reported HEENTM: No: Symptoms Reported Respiratory: No: Symptoms reported Cardiac (ROS): No: Symptoms Reported ABD/GI: No: Symptoms Reported : Yes: Symptoms Reported *Physical Exam - Vital Signs Last Vital Signs Temp Pulse Resp BP Pulse Ox 98.8 F 90 18 127/63 100 04/01/18 10:50 04/01/18 10:50 04/01/18 10:50 04/01/18 10:50 04/01/18 10:50 - Physical Exam General Appearance: Yes: Nourished, Appropriately Dressed HEENT: positive: EOMI, EDOUARD Neck: positive: Supple Respiratory/Chest: positive: Lungs Clear, Normal Breath Sounds Cardiovascular: positive: Regular Rhythm, Regular Rate Female Pelvic Exam: positive: Bartholin mass (right ) Musculoskeletal: positive: Normal Inspection Extremity: positive: Normal Capillary Refill, Normal Inspection, Normal Range of Motion Integumentary: positive: Normal Color, Dry, Warm Neurologic: positive: Fully Oriented, Alert, Normal Mood/Affect, Normal Response , Motor Strength 5/5 Procedures - Incision and Drainage I&D Site: Right: Bartholin Betadine cleansed: Yes Anesthesia: 1% Lidocaine Volume(ml): 3 Blade Size: 10 Attempts: 1 Iodinated Packin/4 in Plain Packing: Yes Complications: none Dressing: Yes Progress: 04/01/18 12:17 bloody pus drainage , pt tolerated well packed with 1/4 inch packing Medical Decision Making - Medical Decision Making 04/01/18 12:22 cc: tolerated procedure well drained bartholin abscess placed on antibiotics for surrounding redness strict followup discussed pt understands the dc inst *DC/Admit/Observation/Transfer Diagnosis at time of Disposition: Bartholin's gland abscess - Discharge Dispostion Disposition: HOME Condition at time of disposition: Fair - Prescriptions Prescriptions: Amoxicillin/Potassium Clav [Augmentin 875-125 Tablet] 1 each PO BID #10 tablet Ibuprofen 800 mg PO TID PRN #20 tablet PRN Reason: Pain - Referrals Referrals: Balaji Bradley MD [Staff Physician] - Delroy Santos MD [Primary Care Provider] - - Patient Instructions Printed Discharge Instructions: Bartholin Gland Cyst Additional Instructions: 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 gilda el ibuprofeno para el dolor sentarse en baos calientes con frecuencia toallas tibias a la migue Si es peor el fin de semana, regresa a Urgencias. Print Language: GREEK - Post Discharge Activity
== END 2018-04-01 12:25 | disposition home or self-care (01) ==
LOC: JER 10:43
PROC: 0U9L00Z Drainage of Vestibular Gland with Drainage Device, Open Approach (ICD-10-PCS; principal; 2018-04-01)
DX: N75.1 Abscess of Bartholin's gland (principal)
CPT/HCPCS: 87070; 87186; 87205; 99281-25

== ENCOUNTER 2018-09-22 08:21 | Emergency (ER) | payer OTHER ==
[2018-09-22 08:33] VITALS: BMI 21.2
--- NOTE | 2018-09-22 09:51 | PDOC ---
History of Present Illness - General Chief Complaint: Pain, Acute Stated Complaint: RT LOWER ABD PAIN Time Seen by Provider: 09/22/18 08:54 History Source: Patient, Spouse ( present at bedside.), Pool Hand Used , Old Records Exam Limitations: Language Barrier - History of Present Illness Initial Comments: HPI: 48 y/o female presenting to [facility] ER complaining of three days of left flank and suprapubic tenderness with subjective fever and chills. Pain is described as constant and nonmigratory. Further endorses two to three weeks of foul smelling urine without dysuria or hematuria. Trace amount of clear to white discharge in underwear. Denies abdominal pain, vomiting, or diarrhea. Pt is s/p urethral sling placement on 10 Aug 2018 and revision on [address] Santos. Surgery was performed at [facility]. Was placed on Augmentin following first surgery and Keflex following second surgery. Has been taking Percocet for pain control. Attempt to schedule clinic appointment with Dr. Santos but he only holds clinic on . Pt is Gambian speaking only. 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 Medical Hx: - Pt denies past medical history. Denies prescription medications. Surgical Hx: - Urethral sling placement on 10 Aug 2018 and revision on [address] Santos - Appendectomy, 2017 Past History - Past Medical History Allergies/Adverse Reactions: Allergies Allergy/AdvReac Type Severity Reaction Status Date / Time No Known Allergies Allergy Verified 09/22/18 08:23 Home Medications: Ambulatory Orders Hydrocodone/Acetaminophen [Hydrocodone-Acetamin 5-325 mg] 1 each PO Q4H PRN 09/07 Meloxicam 7.5 mg PO DAILY 09/22/18 Sulfamethoxazole/Trimethoprim [Bactrim Ds -] 1 tab PO BID #14 tablet 09/22/18 COPD: No - Surgical History Appendectomy: Yes - Reproductive History Cervical CA: No Dysfunctional Uterine Bleeding: No Ectopic : No Endometrial CA: No Polycystic Ovaries: No Tubal Ligation: No - Immunization History Immunization Up to Date: Yes - Suicide/Smoking/Psychosocial Hx Smoking History: Never smoked Hx Alcohol Use: No Drug/Substance Use Hx: No Review of Systems - Review of Systems Able to Perform ROS?: Yes Comments:: In addition to that documented in the HPI above, the additional ROS was obtained : Constitutional: Endorses subjective fevers and chills Head: Denies vision changes ENMT: Denies sore throat CV: Denies chest pain Resp: Denies SOB GI: Endorses nausea without vomiting or diarrhea : Per HPI MSK: Denies recent trauma Skin: Denies new rashes Neuro: Denies new numbness or tingling or weakness Endocrine: Denies polyuria Heme: Denies bleeding or bruising *Physical Exam - Vital Signs Last Vital Signs Temp Pulse Resp BP Pulse Ox 98.2 F 94 H 16 126/88 100 09/22/18 08:23 09/22/18 08:23 09/22/18 08:23 09/22/18 08:23 09/22/18 08:23 - Physical Exam Comments: Constitutional: Well-developed, well-nourished adult female in no acute distress or obvious discomfort. Found semi-fowlers on hospital bed. Alert and oriented x4. Answered all questions appropriately and completely. Speech was non -labored, non-pressured. Head: Normocephalic. No obvious external signs of trauma. Eyes: Sclerae white. Ears: Hearing grossly intact. Nose: No nasal discharge. Neck: Supple, trachea is midline. Cardiovascular / Chest: Regular rate and regular rhythm. No murmur, rubs, clicks, or gallops. Peripheral pulses: radial pulses full. Respiratory: Breathing unlabored. Equal chest rise and fall. Clear to auscultation bilaterally. No stridor, no wheezing, no rhonchi. Gastrointestinal: abdomen is tender in suprapubic region without rebound or guarding. Globally, abdomen is soft and non-distended. No hepatosplenemegaly. No pulsatile masses. No overlying skin lesions or obvious signs of trauma. Neuro: Alert and oriented. Moving all four extremities spontaneously. Gait normal. Skin: Warm, dry, and intact. No bruising, rashes, or other lesions. : No R or L CVA tenderness. Normal appearing female external genitalia. No obvious erythema, mucosal irritation, or tenderness. RN chaperoned exam. Psych: Affect: appropriate. Mood: normal. ED Treatment Course - LABORATORY CBC & Chemistry Diagram: 09/22/18 10:38 09/22/18 10:38 Medical Decision Making - Medical Decision Making *Reviewed vital signs, nursing notes, and prior visit documentation (if available). 48 y/o female presenting with left flank and suprapubic pain x3 days. S/p two recent urologic procedures. Afebrile. Vitals unremarkable for tachycardia or hypotension. Physical exam as described above. Suspect possible cystitis, but given recent instrumentation will obtain CT scan of abdomen and pelvis with IV and PO contrast to evaluate for possible abscess. Low suspicion for pyelonephritis or nephrolithiasis. Will obtain CBC, BMP, UA, and urine culture to further evaluate. CBC unremarkable for leukocytosis. BMP unremarkable for significant electrolyte derangement. eGFR normal. CT scan unremarkable for abscess or other acute pathology. UA remarkable for pyuria and leukocyte esterase. Continue to suspect acute cystitis. Will prescribe Bactrim as pt was already recently prescribed augmentin and keflex. Discussed imaging and laboratory results with pt. Answered all questions. Provided return precautions. Pt expressed verbal understanding and agreement with plan to discharge home with outpatient follow up with Dr. Santos at previously scheduled appointment. Pt ordered ceftriaxone but was already discharged from the department prior to attempt at administration. Pt was fill Bactrim prescription today to start abx therapy. *DC/Admit/Observation/Transfer Diagnosis at time of Disposition: UTI (urinary tract infection) Qualifiers: Urinary tract infection type: site unspecified Hematuria presence: without hematuria Qualified Code(s): N39.0 - Urinary tract infection, site not specified - Discharge Dispostion Disposition: HOME Condition at time of disposition: Good Decision to Admit order: No - Prescriptions Prescriptions: Sulfamethoxazole/Trimethoprim [Bactrim Ds -] 1 tab PO BID #14 tablet - Referrals Schedule a call back: Urine Culture Referrals: Delroy Santos MD [Primary Care Provider] - Jeb Santos MD [Staff Physician] - - Patient Instructions Printed Discharge Instructions: DI for Acute Cystitis Additional Instructions: Hoy te vieron por flanco shelbi y ternura suprapbica. La tomografa computarizada no mostr ningn absceso en villarreal abdomen o pelvis. Villarreal anlisis de clarissa era normal. La prueba de orina mostr que usted tiene jhoana infeccin del tracto urinario. La prueba de orina final tardar dos klein en resultar. El hospital lo llamar si necesita cambiar los antibiticos. He enviado jhoana receta para un antibitico llamado Bactrim. Edi maria esther se indica en el prospecto. No consuma mas de la dosis recomendada. Puede edi el contador de Tylenol o Advil segn sea necesario para el dolor. Edi maria esther se indica en el prospecto. No exceda la dosis recomendada. Val un seguimiento con el Dr. Santso en villarreal musa previamente programada. Jhoana copia de los resultados de hoy se adjunta a alex paquete. Llvelo a la musa para que villarreal mdico pueda revisarlos. Vaya al departamento de emergencias ms cercano si villarreal afeccin empeora o si [place] que necesita jhoana evaluacin de emergencia adicional. You were seen today for left sided flank and suprapubic tenderness. The CT scan did not show any abscess in your abdomen or pelvis. Your blood work was normal. The urine test showed you have a urinary tract infection. The final urine test will take two days to result. The hospital will call you if the antibiotics need to be changed. I have sent a prescription for an antibiotic called Bactrim. Take as directed on the package insert. Do not take more than the recommended dose. You can take over the counter Tylenol or Advil as needed for pain. Take as directed on the package insert. Do not exceed the recommended dosage. Follow up with Dr. Santos at your previously scheduled appointment. A copy of todays results are attached to this packet. Take it to the appointment so your doctor can review them. Go to the nearest emergency department if your condition worsens or you feel like you need additional emergency evaluation. Print Language: YAKUT - Post Discharge Activity Forms/Work/School Notes: Back to Work
--- NOTE | 2018-09-22 09:55 | PDOC ---
Attending Attestation - HPI HPI: 09/22/18 10:21 The patient is a 48-year-old female, with a past medical history of ruptured appendix on 04/07/18 (done by Dr. Griggs) complicated by anterior wall abscess s/p drainage, who presents to the ED with 3 days of LT lower back pain and supapubic pain. Patient is s/p urethral sling revision on 09/07 with 2 weeks of foul-smelling urine with whitish discharge. The patient was placed on course of Keflex and has not had urinary retention since then. She reports nausea, but no vomiting. The patient denies any fevers, chills, diarrhea, or constipation. Denies any chest pain or palpitations. Denies any urinary symptoms. Allergies: NKA Past surgical history: Laparoscopic surgery for ruptured appendix (Dr. Griggs ) Social history: No reported alcohol, drug or cigarette use. PCP: Dr. Torres <Tamie Reed - Last Filed: 09/22/18 10:21> - Resident Resident Name: Manuel Fitch - ED Attending Attestation I have performed the following: I have examined & evaluated the patient, The case was reviewed & discussed with the resident, I agree w/resident's findings & plan, Exceptions are as noted - Physicial Exam PE: 09/22/18 14:05 Patient is awake and alert, well-nourished, in no distress Normocephalic and atraumatic PERRLA, EOMI, no scleral icterus CTA RRR Abdomen soft, nondistended, minimal suprapubic tenderness to deep palpation, no guarding or rebound; bowel sounds present in all 4 quadrants, no CVA tenderness bilaterally - Medical Decision Making 09/22/18 14:05 48-year-old female presents to the ER with atraumatic lower abdominal pain radiating to the back 2 weeks post urethral sling revision by Dr. Miles. Patient nontoxic and well-appearing the ER with minimal abdominal tenderness. Will rule out pelvic abscess with CT with IV and rectal contrast. We'll consult urology as needed. Will reassess. <Javier Espinoza - Last Filed: 09/22/18 14:06> Attestations - Attestations 09/22/18 10:22 Documentation prepared by Tamie Reed, acting as medical assistant secretary for Javier Espinoza MD. <Tamie Reed - Last Filed: 09/22/18 10:21>
[2018-09-22] MEDS ORDERED: ACETAMINOPHEN 500 MG TABLET (FP) PO ONE (10:29)
[2018-09-22 10:54] LABS: BASO % 0.3 % (0-2.0); EOS % 0.4 % (0-4.5); HEMATOCRIT 33.2 % (32.4-45.2); HEMOGLOBIN 11.1 GM/dL (10.7-15.3); LYMPH % 22.4 % (8-40); MCH 28.6 pg (25.7-33.7); MCHC 33.5 g/dl (32.0-36.0); MEAN CELL VOLUME 85.5 fl (80-96); MEAN PLT VOLUME 8.6 fl (7.5-11.1); MONO % 4.5 % (3.8-10.2); NEUT % 72.4 % (42.8-82.8); PLATELET COUNT 305 K/MM3 (134-434); RBC 3.89 M/mm3 (3.60-5.2); RDW 14.8 % (11.6-15.6); WHITE BLOOD COUNT 8.9 K/mm3 (4.0-10.0)
[2018-09-22] MEDS ORDERED: ACETAMINOPHEN 325 MG TABLET (FP) ONE (10:55)
[2018-09-22 11:23] LABS: ANION GAP 7 MMOL/L (8-16); BLOOD UREA NITROGEN 8 mg/dL (7-18); CALCIUM 9.8 mg/dL (8.5-10.1); CHLORIDE 106 mmol/L (98-107); CO2 24 mmol/L (21-32); CREATININE 0.6 mg/dL (0.55-1.3); GLUCOSE,RANDOM 94 mg/dL (74-106); POTASSIUM 4.2 mmol/L (3.5-5.1); SODIUM 138 mmol/L (136-145)
[2018-09-22 11:26] LABS: EPI CELLS 0.6 /HPF (0-5); PH,URINE 5.5 (5.0-8.0); URINE APPEARANCE CLEAR; URINE BACTERIA 21.7 /hpf (NEGATIVE); URINE BILIRUBIN NEGATIVE (NEGATIVE); URINE CASTS 2 /hpf (0-8); URINE COLOR YELLOW; URINE GLUCOSE (UA) NEGATIVE (NEGATIVE); URINE KETONE NEGATIVE (NEGATIVE); URINE LEUK ESTERASE 2+ (NEGATIVE); URINE NITRITE NEGATIVE (NEGATIVE); URINE PROTEIN NEGATIVE (NEGATIVE); URINE RBC 2 /hpf (0-4); URINE UROBILINOGEN 0.2 mg/dL (0.2-1.0); URINE WBC 26 /hpf (0-5)
[2018-09-22 12:34] LABS: ALK PHOS 130 U/L (45-117); BILIRUBIN,DIRECT 0.1 mg/dL (0.0-0.2); BILIRUBIN,TOTAL 0.3 mg/dL (0.2-1); SGOT/AST 14 U/L (15-37); SGPT/ALT 34 U/L (13-61); TOT PROT 8.3 g/dl (6.4-8.2)
[2018-09-22] MEDS ORDERED: CEFTRIAXONE 1,000 MG in DEXTROSE 5%-WATER - 50 ML IVPB ONE (14:37)
[2018-09-22] MEDS ORDERED: CEFTRIAXONE 1 GM/50 ML BAG ONE (15:30)
[2018-09-22 15:39] VITALS: BP 123/71; PULSE 86; TEMP 98.4
== END 2018-09-22 15:43 | disposition home or self-care (01) ==
LOC: JER 08:21
DX: N39.0 Urinary tract infection, site not specified (principal)
CPT/HCPCS: 36415; 74177-TC; 80048; 80076; 81003; 84702; 84703; 85025; 87086; 99283-25; Q9967

== ENCOUNTER 2020-03-22 04:48 | Day surgery (SDC) | payer OTHER ==
[2020-03-20 17:57] VITALS: BMI 21.1
[2020-03-22] MEDS ORDERED: CEFAZOLIN 2 GM/D5W 2 GM/50 ML ML IVPB ONE (07:00)
[2020-03-22] MEDS ORDERED: PHENAZOPYRIDINE HCL 100 MG TABLET (FP) PO ONE (07:00)
--- NOTE | 2020-03-22 07:51 | HP ---
History & Physical Update - History History: No Change - Physical Physical: No Change - Assessment Assessment: No Change - Plan Plan: No Change (No change in HP)
[2020-03-22] MEDS ORDERED: PHENAZOPYRIDINE HCL 100 MG TABLET (FP) ONE (07:55)
[2020-03-22] MEDS ORDERED: ceFAZolin SODIUM 1 GM VIAL ONE (07:55)
[2020-03-22 08:18] LABS: URINE APPEARANCE CLEAR; URINE BILIRUBIN NEGATIVE (NEGATIVE); URINE COLOR YELLOW; URINE GLUCOSE (UA) NEGATIVE (NEGATIVE); URINE KETONE NEGATIVE (NEGATIVE); URINE LEUK ESTERASE NEGATIVE (NEGATIVE); URINE NITRITE NEGATIVE (NEGATIVE); URINE PROTEIN NEGATIVE (NEGATIVE); URINE UROBILINOGEN 0.2 mg/dL (0.2-1.0)
[2020-03-22] MEDS ORDERED: fentaNYL CITRATE 250 MCG/5 ML VIAL ONE (08:33)
[2020-03-22] MEDS ORDERED: PROPOFOL 20 ML ONE ×2 (08:33)
[2020-03-22] MEDS ORDERED: MIDAZOLAM HCL 2 MG/2 ML SINGLE DOSE VIAL ONE ×3 (08:33→08:46)
[2020-03-22] MEDS ORDERED: ROCURONIUM BROMIDE 50 MG/5 ML SYRINGE ONE ×2 (08:33→10:05)
[2020-03-22] MEDS ORDERED: SUCCINYLCHOLINE CHLORIDE 200 MG/10 ML SYRINGE ONE (08:34)
[2020-03-22] MEDS ORDERED: ROPIVACAINE HCL 0.5% 30ML VIAL ONE (08:47)
[2020-03-22] MEDS ORDERED: ceFAZolin SODIUM 1 GM VIAL IVPB ONE (09:20)
[2020-03-22] MEDS ORDERED: NEOSTIGMINE METHYLSULFATE 0.5 MG/ML - 10 ML MDV ONE (10:55)
[2020-03-22] MEDS ORDERED: IBUPROFEN 800 MG/8 ML IJ IVPB ONE (11:25)
[2020-03-22] MEDS ORDERED: MEPERIDINE HCL 25 MG/ML VIAL ONE (11:25)
[2020-03-22] MEDS ORDERED: ONDANSETRON 4 MG/2 ML VIAL IVPUSH PRN (11:27)
[2020-03-22] MEDS ORDERED: DOCUSATE SODIUM 100 MG CAPSULE (FP) PO PRN (11:27)
[2020-03-22] MEDS ORDERED: BISACODYL 5 MG TABLET.DR (FP) PO PRN (11:27)
[2020-03-22] MEDS ORDERED: SIMETHICONE 80 MG TAB.CHEW (FP) PO PRN (11:27)
[2020-03-22] MEDS ORDERED: oxyCODONE HCL 5 MG TABLET PO PRN ×2 (11:27)
[2020-03-22] MEDS: IBUPROFEN 800 MG/8 ML IJ IVPB SCH ×2 (11:30→20:10)
--- NOTE | 2020-03-22 11:58 | OP ---
Operative Note - Note: Operative Date: 03/22/20 Pre-Operative Diagnosis: uterine prolapse Operation: Robotic laparoscopic total hysterectomy, bilateral salpingectomy Post-Operative Diagnosis: Same as Pre-op Surgeon: Patricia Boyd Rn Training: Roslyn Michelle Anesthesia: General Specimens Removed: uterus and b/l fallopian tubes Estimated Blood Loss (mls): 25 Drains, Volume Out (mls): 350 (aguayo) Fluid Volume Replaced (mls): 1,650
[2020-03-22] MEDS ORDERED: ACETAMINOPHEN INJECTION 100 ML IVPB ONE (12:02)
--- NOTE | 2020-03-22 12:08 | SURG ---
Surgery Manager Mass Note Manager Mass: Roslyn Michelle PA-C Date of Service: 03/22/20 Diagnosis: uterine prolapse Procedure: Robotic laparoscopic total hysterectomy, bilateral salpingectomy I was present for the entirety of the operative procedure. For further detail, please refer to operative report. Visit type - Case Type Case Type: Scheduled - Emergency Emergency Visit: No - New patient This patient is new to me today: Yes Date on this admission: 03/22/20
[2020-03-22] MEDS: ACETAMINOPHEN 1000 MG/100 ML VIAL (NON FORMULARY) IVPB SCH ×2 (12:15→21:57)
--- NOTE | 2020-03-22 12:38 | OP ---
DATE OF OPERATION: 03/22/2020 PREOPERATIVE DIAGNOSIS: Uterine pelvic prolapse. OPERATION: Laparoscopic robotic total hysterectomy and bilateral salpingectomy. POSTOPERATIVE DIAGNOSIS: Uterine pelvic prolapse. SURGEON: Elsy Boyd MD EYE CLINIC MANAGER: NATALIE Carrasco ANESTHESIA: General. DESCRIPTION OF PROCEDURE: Patient was taken to the operating room, placed in dorsal lithotomy position, prepped and draped in usual sterile fashion. Timeout was performed in accordance with hospital regulation. Speculum was placed in the vagina, anterior lip of the cervix grasped with a single-tooth tenaculum. Cervix was then dilated to accommodate the large uterine manipulator. Gayle catheter was inserted into the bladder. Attention was then drawn to the umbilicus where an 8-mm umbilical incision was made. Veress needle was inserted into the cavity. Approximately 3-4 L of CO2 was insufflated in the cavity. Veress needle was then removed, and an 8-mm trocar was then inserted. Two trocars were placed on the left 10 cm parallel to the umbilical incision. Incision was then made. An 8-mm trocar was inserted. Vessel seal cannula was inserted in the left upper abdomen. A 5-mm incision was made and the AirSeal cannula was then inserted under direct visualization. Two trocars were then placed on the right side, robotic trocars, 8-mm incisions were made and trocars were inserted under direct visualization 10 cm apart from each incision. The da Taylor robot was then side docked to the patient's arm. Trocars were then inserted. Instruments were then placed. Arm 4 had the tenaculum, arm 3 had the Endoshears, arm 2 had the camera, and arm 1 had the vessel sealer. Trocars were then inserted and placement was confirmed. Attention was then drawn to the console, where control of the console was then done. Tenaculum was then used to elevate the uterus to the right, and the ureter was identified on the left. Tubes and ovaries were noted to be normal. Uteroovarian ligament was identified and clamped and cut using vessel sealer. Uterine arteries were identified and clamped and cut. Vesicouterine reflection was then entered, and bladder was bluntly dissected out of the operative field. Cardinal ligament was identified and clamped and cut down to the level of the vagina. Endoshears were then used to enter the vagina anteriorly, and the same procedure was repeated on the left side where the uteroovarian ligament was identified, clamped, and cut. Tube and ovary on that were noted to be normal. Uterine artery on the right side was clamped and cut. Bladder was bluntly dissected out of the operative field. Cardinal ligament was identified down to the level of the vagina. Endoshears were then used to cut the vagina away from the cervix. The uterus was then removed, and a 2-0 V-Loc suture was then entered into the abdomen. Tubes were removed bilaterally using vessel sealer, and hemostasis was achieved. The 2-0 V-Loc suture was then used to close the vagina in a continuous fashion. Hemostasis was achieved. After vagina had been closed, needle was removed. All instruments removed. Abdomen incisions were then closed using 3-0 Vicryl subcuticular fashion. Wound was washed and dressed. Patient tolerated the procedure well. Estimated blood loss was 25 mL. ELSY BOYD M.D. [id number]
[2020-03-22] MEDS: SODIUM CHLORIDE 1,000 ML IV SCH (13:45)
[2020-03-22] MEDS: CEFAZOLIN 1 GM/D5W 1 GM/50 ML BAG IVPB SCH ×2 (17:40→17:41)
[2020-03-22 19:37] LABS: HEMATOCRIT 33.4 % (32.4-45.2); HEMOGLOBIN 11.5 GM/dL (10.7-15.3); MCH 31.8 pg (25.7-33.7); MCHC 34.4 g/dl (32.0-36.0); MEAN CELL VOLUME 92.4 fl (80-96); MEAN PLT VOLUME 8.7 fl (7.5-11.1); PLATELET COUNT 207 K/MM3 (134-434); RBC 3.62 M/mm3 (3.60-5.2); RDW 13.2 % (11.6-15.6); WHITE BLOOD COUNT 9.2 K/mm3 (4.0-10.0)
[2020-03-22 20:07] LABS: CALCIUM 8.5 mg/dL (8.5-10.1); CREATININE 0.8 mg/dL (0.55-1.3); POTASSIUM 3.9 mmol/L (3.5-5.1)
[2020-03-23 02:19] LABS: HCG,QUALITATIVE URINE Negative
[2020-03-23] MEDS: SODIUM CHLORIDE 1,000 ML IV SCH (03:11)
[2020-03-23] MEDS: CEFAZOLIN 1 GM/D5W 1 GM/50 ML BAG IVPB SCH ×2 (03:12→09:39)
[2020-03-23] MEDS: ACETAMINOPHEN 1000 MG/100 ML VIAL (NON FORMULARY) IVPB SCH ×2 (03:56→09:39)
[2020-03-23] MEDS: IBUPROFEN 800 MG/8 ML IJ IVPB SCH (04:35)
[2020-03-23 06:19] VITALS: BP 126/69; PULSE 85; TEMP 98.7
[2020-03-23 08:22] LABS: HEMATOCRIT 30.5 % (32.4-45.2); HEMOGLOBIN 10.5 GM/dL (10.7-15.3); MCH 32.2 pg (25.7-33.7); MCHC 34.6 g/dl (32.0-36.0); MEAN CELL VOLUME 93.2 fl (80-96); MEAN PLT VOLUME 9.2 fl (7.5-11.1); PLATELET COUNT 183 K/MM3 (134-434); RBC 3.27 M/mm3 (3.60-5.2); RDW 13.3 % (11.6-15.6); WHITE BLOOD COUNT 7.8 K/mm3 (4.0-10.0)
[2020-03-23 08:45] LABS: BLOOD UREA NITROGEN 5.3 mg/dL (7-18); CALCIUM 8.3 mg/dL (8.5-10.1); CREATININE 0.6 mg/dL (0.55-1.3); POTASSIUM 3.5 mmol/L (3.5-5.1)
--- NOTE | 2020-03-23 09:39 | PN ---
Progress Note (short form) - Note Progress Note: PRODUCT [facility]ANG[facility] SURGERY POD #1 s/p Robotic laparoscopic total hysterectomy, bilateral salpingectomy Alert. C/o mild incisional tenderness. OOB and ambulating without difficulty. Tolerating diet.' Denies n/v/f/c, CP, palpitations, SOB or JEWELL. Last Vital Signs Temp Pulse Resp BP Pulse Ox 98.7 F 85 17 126/69 98 03/23/20 06:00 03/23/20 06:00 03/22/20 21:00 03/23/20 06:00 03/23/20 06:00 CBC, BMP 03/23/20 07:20 03/23/20 07:20 GEN: nad ABD: dressing c/d/i LE: all compartments soft Problem List - Problems (1) S/P abdominal hysterectomy Code(s): Z90.710 - ACQUIRED ABSENCE OF BOTH CERVIX AND UTERUS (2) Prolapsed uterus Code(s): N81.4 - UTEROVAGINAL PROLAPSE, UNSPECIFIED
[2020-03-23] MEDS ORDERED: ENOXAPARIN NA (PORCINE) 40 MG/0.4 ML DISP.SYRIN SQ SCH (10:00)
[2020-03-23] MEDS ORDERED: ACETAMINOPHEN 325 MG TABLET (FP) PO PRN (19:00)
--- NOTE | 2020-03-26 18:50 | PATH ---
Surgical Pathology Report Patient Name: KAROLINE BAEZA [facility]. Rec. #: [id number] /Age/Gender: 1970 (Age: 50) / F Account: [id number] Location: AMBULATORY SURG Taken: 03/22/2020 Received: 03/22/2020 Reported: 03/26/2020 Physicians: Patricia Boyd M.D. Specimen(s) Received A: UTERUS B: LEFT FALLOPIAN TUBE C: RIGHT FALLOPIAN TUBE Clinical History Uterine prolapse Final Diagnosis A. UTERUS, CERVIX, ROBOTIC LAPAROSCOPIC TOTAL HYSTERECTOMY: 138 G UTERUS. SECRETORY ENDOMETRIUM. MYOMETRIUM AND SEROSA WITHOUT SIGNIFICANT PATHOLOGIC FINDINGS. CERVIX WITH CHRONIC CERVICITIS AND SQUAMOUS METAPLASIA. B. FALLOPIAN TUBE, LEFT SALPINGECTOMY: FALLOPIAN TUBE WITH ENDOSALPINGOSIS AND PARATUBAL CYST (INCLUDING FIMBRIATED END AND FULL LUMINAL PORTION). C. FALLOPIAN TUBE, RIGHT, SALPINGECTOMY: FALLOPIAN TUBE FOCAL MILD CHRONIC SALPINGITIS. (INCLUDING FIMBRIATED END AND FULL LUMINAL PORTION). Electronically Signed Clare Benton M.D. Gross Description A. Received in formalin labeled "uterus and cervix," is a 138 g uterus with an attached cervix and no attached adnexa. The specimen measures 9 cm from superior to inferior, 5.8 cm from left to right and 4.0 cm from anterior to posterior. The serosa is murphy-uriarte and smooth. The attached cervix measures 3 cm in length and averages 3 cm in diameter. The ectocervix is pink-murphy, smooth and glistening. The endocervix is unremarkable. The endometrial cavity measures 4.5 cm in length and 2.3 cm from cornu to cornu. The endometrium is murphy-red, thickened, and measures up to 0.4 cm in thickness. The myometrium is murphy-pink and smooth, averaging 2.0 cm in thickness. No intramural nodules are identified. Clothing Pattern Preparer sections are submitted in 6 cassettes as follows: 1-anterior cervix; 2-posterior cervix; 4-9-bagzniay endomyometrium; 7-5-blnmozpmt endomyometrium. B. Received in formalin labeled "left fallopian tube," is a 3.5 cm length fimbriated fallopian tube. The outer surface is uriarte purple and smooth with a 1.0 cm in greatest dimension paratubal cyst attached. Sectioning reveals an unremarkable lumen. Clothing Pattern Preparer sections are submitted in 2 cassettes as follows: 1-fimbria; 2-cross sections of fallopian tube and paratubal cyst. C. Received in formalin labeled "right fallopian tube," is a 4.5 cm in length fimbriated fallopian tube. The outer surface is uriarte purple and smooth. Sectioning reveals an unremarkable lumen. Clothing Pattern Preparer sections are submitted in 2 cassettes as follows: 1-fimbriae; 6-unebh-kgkwgipd of fallopian tube. 03/23/2020 [facility]03/23/2020
== END 2020-03-23 11:09 | disposition home or self-care (01) ==
LOC: JASUSAT 04:48 → JASU-SURG 04:48 → J6S 14:01 → JASUSAT 03-23 11:09
PROVIDERS: ATTEND Obstetrics & Gynecology
PROC: 0UT9FZZ Resection of Uterus, Via Natural or Artificial Opening With Percutaneous Endoscopic Assistance (ICD-10-PCS; principal; 2020-03-22 09:00)
PROC: 0UT7FZZ Resection of Bilateral Fallopian Tubes, Via Natural or Artificial Opening With Percutaneous Endoscopic Assistance (ICD-10-PCS; 2020-03-22 09:00)
DX: N81.4 Uterovaginal prolapse, unspecified (principal)
CPT/HCPCS: 36415; 80048; 81003; 84703; 85027; 86850; 86900; 86901; 88302-TC; 88305-TC; 94760; J0131

== ENCOUNTER 2020-12-12 19:25 | Emergency (ER) | payer OTHER ==
[2020-12-12 19:39] VITALS: BP 150/83; PULSE 97; TEMP 97.7; BMI 22.1
[2020-12-12 21:03] LABS: EPI CELLS 4 /uL (0-25.1); HYALINE CASTS 7 /uL (0-3.1); URINE APPEARANCE TURBID; URINE BILIRUBIN 1+ (NEGATIVE); URINE COLOR RED; URINE GLUCOSE (UA) NEGATIVE (NEGATIVE); URINE KETONE NEGATIVE (NEGATIVE); URINE LEUK ESTERASE 3+ (NEGATIVE); URINE NITRITE POSITIVE (NEGATIVE); URINE PROTEIN 2+ (NEGATIVE); URINE UROBILINOGEN 0.2 mg/dL (0.2-1.0); URINE WBC 946 /uL (0-25.8)
[2020-12-12 21:33] LABS: URINE RBC 21160.4 /uL (0-23.9)
[2020-12-12 21:34] LABS: URINE BACTERIA 1060.1 /uL (0-1359)
[2020-12-12 21:35] LABS: YEAST NEGATIVE (NEGATIVE)
== END 2020-12-12 22:14 | disposition home or self-care (01) ==
LOC: JER 19:25
DX: N39.0 Urinary tract infection, site not specified (principal); R31.9 Hematuria, unspecified
CPT/HCPCS: 81003; 87086; 87186; 99283-25

== ENCOUNTER 2023-09-18 23:48 | Emergency (ER) | payer OTHER ==
[2023-09-19] VITALS: BP 159/84; PULSE 92; RESP 20; TEMP 97.6; BMI 21.9
[2023-09-19] MEDS ORDERED: FLUCONAZOLE 150 MG TABLET PO ONE (00:33)
[2023-09-19] MEDS: FLUCONAZOLE 150 MG TABLET PO ONE (00:34)
[2023-09-19 00:40] LABS: EPI CELLS >36 /uL (0-25.1); HYALINE CASTS 2 /uL (0-3.1); URINE APPEARANCE CLEAR; URINE BACTERIA 78 /uL (0-1359); URINE BILIRUBIN NEGATIVE (NEGATIVE); URINE COLOR YELLOW; URINE GLUCOSE (UA) NEGATIVE (NEGATIVE); URINE KETONE NEGATIVE (NEGATIVE); URINE LEUK ESTERASE 3+ (NEGATIVE); URINE NITRITE NEGATIVE (NEGATIVE); URINE PROTEIN NEGATIVE (NEGATIVE); URINE RBC 25 /uL (0-23.9); URINE UROBILINOGEN 0.2 mg/dL (0.2-1.0); URINE WBC 83 /uL (0-25.8)
== END 2023-09-19 01:17 | disposition home or self-care (01) ==
LOC: JER 23:48
DX: B37.31 Acute candidiasis of vulva and vagina (principal); R10.30 Lower abdominal pain, unspecified
CPT/HCPCS: 36415; 81003; 87491; 87591; 87661; 99283-25

== ENCOUNTER 2023-11-23 17:07 | Emergency (ER) | payer OTHER ==
[2023-11-23 17:17] VITALS: BP 127/70; PULSE 78; RESP 19; TEMP 98.7; BMI 21.4
[2023-11-23] MEDS ORDERED: KETOROLAC TROMETHAMINE 30 MG/1 ML VIAL ONE (18:16)
[2023-11-23] MEDS: KETOROLAC TROMETHAMINE 30 MG/1 ML VIAL IM ONE (18:20)
== END 2023-11-23 18:33 | disposition home or self-care (01) ==
LOC: JERFT 17:07
PROC: 3E0133Z Introduction of Anti-inflammatory into Subcutaneous Tissue, Percutaneous Approach (ICD-10-PCS; principal; 2023-11-23)
DX: M25.561 Pain in right knee (principal)
CPT/HCPCS: 73560-TC-RT-FY; 99284-25

== ENCOUNTER 2024-06-22 09:32 | Emergency (ER) | payer OTHER ==
[2024-06-22 09:46] VITALS: BP 121/72; PULSE 89; RESP 20; TEMP 97.8; BMI 21.2
== END 2024-06-22 10:22 | disposition home or self-care (01) ==
LOC: JERFT 09:32
DX: R05.9 Cough, unspecified (principal); J06.9 Acute upper respiratory infection, unspecified; Z20.822 Contact with and (suspected) exposure to COVID-19
CPT/HCPCS: 87633; 99283-25